=== PATIENT | female | born 1990 | race Caucasian/White ===

== ENCOUNTER 2017-06-04 19:12 | Emergency (ER) | payer SELFPAY ==
[~2017-06-04] VITALS: Ht 167.6 cm; Wt 81.8 kg
[~2017-06-04 19:12] MED LIST: PREN1TAB52 PO
[2017-06-04 23:12] VITALS: BP 121/64
== END 2017-06-04 23:12 | disposition home or self-care (01) ==
LOC: EMS 19:15
DX: R07.89 Other chest pain (principal)
CPT/HCPCS: 93005; 99284

== ENCOUNTER 2017-12-26 11:52 | Emergency (ER) | payer MEDICAID ==
[~2017-12-26] VITALS: Ht 165.1 cm; Wt 79.5 kg
[2017-12-26] MEDS ORDERED: IBUPROFEN 600 MG TABLET PO ONE (13:30)
[2017-12-26 13:58] VITALS: BP 116/63
== END 2017-12-26 14:01 | disposition home or self-care (01) ==
LOC: EMS 11:53
DX: S46.911A Strain of unspecified muscle, fascia and tendon at shoulder and upper arm level, right arm, initial encounter (principal); S46.912A Strain of unspecified muscle, fascia and tendon at shoulder and upper arm level, left arm, initial encounter; M77.11 Lateral epicondylitis, right elbow; X58.XXXA Exposure to other specified factors, initial encounter; Y93.E8 Activity, other personal hygiene; Y92.59 Other trade areas as the place of occurrence of the external cause; Y99.0 Civilian activity done for income or pay
CPT/HCPCS: 99282; 99283

== ENCOUNTER 2019-07-01 08:12 | Emergency (ER) | payer MEDICAID, OTHER ==
[~2019-07-01] VITALS: Ht 170.2 cm; Wt 68.2 kg
[2019-07-01] MEDS ORDERED: CYCLOBENZAPRINE HCL 10 MG TABLET PO ONE (09:45)
[2019-07-01] MEDS ORDERED: IBUPROFEN 600 MG TABLET PO ONE (09:45)
[2019-07-01 09:46] VITALS: BP 119/83
== END 2019-07-01 09:52 | disposition home or self-care (01) ==
LOC: EMS 08:13
DX: J03.90 Acute tonsillitis, unspecified (principal); F12.90 Cannabis use, unspecified, uncomplicated

== ENCOUNTER 2022-03-29 21:54 | Emergency (ER) | payer MEDICAID, OTHER ==
[~2022-03-29] VITALS: Ht 170.2 cm; Wt 75.5 kg
[2022-03-29 22:11] VITALS: BP 122/66
== END 2022-03-30 02:50 | disposition home or self-care (01) ==
LOC: EMS 22:20
DX: J02.9 Acute pharyngitis, unspecified (principal); F12.90 Cannabis use, unspecified, uncomplicated; Z87.39 Personal history of other diseases of the musculoskeletal system and connective tissue
CPT/HCPCS: 87430; 99283

== ENCOUNTER 2022-10-04 19:09 | Emergency (ER) | payer OTHER ==
[~2022-10-04] VITALS: Ht 165.1 cm; Wt 77.0 kg
[2022-10-04 19:28] VITALS: BP 123/74
== END 2022-10-04 23:38 | disposition left against medical advice (07) ==
LOC: EMS 19:10
DX: Z53.21 Procedure and treatment not carried out due to patient leaving prior to being seen by health care provider (principal)
CPT/HCPCS: 99281; Z7502